=== PATIENT | male | born 1970 | race Caucasian/White ===

== ENCOUNTER 2021-12-02 10:35 | Emergency (ER) | payer OTHER ==
[~2021-12-02] VITALS: Ht 167.6 cm; Wt 88.6 kg
[2021-12-02] MEDS ORDERED: ATOR1TAB19 PO (11:02)
[2021-12-02] MEDS ORDERED: METF500T13 PO (11:02)
[2021-12-02] MEDS ORDERED: LISI10TA22 PO (11:02)
[2021-12-02] MEDS ORDERED: BOOSTRIX/ADACEL VACCINE (DIPHTH/PERTUSS/ACELL/TETANUS) 0.5ML SYR IM ONE (11:20)
[2021-12-02] MEDS ORDERED: DERMABOND TOPICAL SKIN ADHESIVE TOP ONE (11:20)
[2021-12-02 12:44] VITALS: BP 152/81
== END 2021-12-02 12:55 | disposition home or self-care (01) ==
LOC: M ED 10:35
DX: S61.213A Laceration without foreign body of left middle finger without damage to nail, initial encounter (principal); W26.0XXA Contact with knife, initial encounter; I10 Essential (primary) hypertension; Z88.0 Allergy status to penicillin; Z79.811 Long term (current) use of aromatase inhibitors; Y92.9 Unspecified place or not applicable; Y93.9 Activity, unspecified; Y99.9 Unspecified external cause status